=== PATIENT | female | born 1950 | race Caucasian/White ===

== ENCOUNTER 2024-07-30 12:13 | Outpatient (CLI) | payer OTHER, SELFPAY ==
--- NOTE | 2024-07-30 13:36 | P.ANES_ITS ---
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
--- NOTE | 2024-07-30 13:36 | W.ANESCHARGE ---
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
--- NOTE | 2024-07-30 13:43 | P.ANES_ITS ---
Anesthesia Charges Start Date/Time Anesthesia Start Date: 07/30/24 Anesthesia Start Time: 13:04 Stop Date/Time Anesthesia Stop Date: 07/30/24 Anesthesia Stop Time: 13:29 Summary Extremes of Age - Over 70 or under 1: MDA Coding CPT Codes CPT Codes: ANES LWR INTST SCR COLSC - 25663 ([id number]) QK - FLOOR FINISHER 2-4 CNCRNT ANES PROC, QX - SECURITY SYSTEMS INSTALLER SVC W/ MD MED DIRECTION, P1 - NORMAL HEALTHY PATIENT Additional Codes: Summary - Extremes of Age - Over 70 or under 1: MDA ([id number])
== END 2024-07-30 12:14 | disposition home or self-care (01) ==
LOC: OP CLINIC 12:18
PROVIDERS: PCP Family Medicine; Visit Provider Internal Medicine Gastroenterology
DX: Z12.11 Encounter for screening for malignant neoplasm of colon (principal); D12.2 Benign neoplasm of ascending colon; K57.30 Diverticulosis of large intestine without perforation or abscess without bleeding; Z86.0109 Personal history of other colon polyps
CPT/HCPCS: 00811; 00812; 45380; 88305; 99100; J2704